=== PATIENT | female | born 1955 | race Caucasian/White ===

== ENCOUNTER → 2022-07-31 13:09 | Outpatient (BNVA) | payer MEDICARE, OTHER, SELFPAY | PROVIDERS: Family Provider Family Medicine; PCP Family Medicine; Visit Provider Family Medicine | DX: E03.9 Hypothyroidism, unspecified (principal); F03.90 Unspecified dementia, unspecified severity, without behavioral disturbance, psychotic disturbance, mood disturbance, and anxiety; F41.0 Panic disorder [episodic paroxysmal anxiety]; R42 Dizziness and giddiness; R73.9 Hyperglycemia, unspecified | CPT/HCPCS: 80053; 82607; 83036; 84443; 85025 ==